=== PATIENT | female | born 1945 | race Caucasian/White ===

== ENCOUNTER 2016-12-28 16:34 | Emergency (ER) | payer MEDICARE ==
--- NOTE | 2016-12-28 18:32 | DIAGNOSTIC IMAGING REPORT ---
PROCEDURE: XR FOREARM - RIGHT INDICATION: TRAUMA/INJURY TECHNIQUE: AP and lateral views. COMPARISON: None. FINDINGS: Marked soft tissue swelling of the right forearm. Osseous structures are normal. No evidence of fracture. There are moderate arthritic changes of the right first metacarpal/greater multangular and the scaphoid/multangular joint. IMPRESSION: 1. Marked soft tissue swelling of the right forearm. 2. No evidence of fracture. 3. Moderate arthritic changes of the right base of thumb and radial wrist. 4. Findings discussed with JANNA Crooks
--- NOTE | 2016-12-30 02:27 | ED ORDER SUMMARY ---
..... Patient: SIMIN PRAJAPATI OrderSheet [facility] VisitID: [id number] [address] [place] [address] 71y, F Registration Date/Time: 12/28/2016 ORDER SHEET Weight: 72.5 kg (stated) Allergies: Codeine, Oxycodone HCl, Sudafed PE GENERAL ORDERS: Forearm Right Urgent (16:51 12/28/2016 Faith Thao per protocol) (Ack 16:53 LNations ER Tech1) (18:35 [facility]) MEDICATION ORDERS: IV FLUIDS: ORDER SHEET NOTES: [Electronically signed by Maya Khan R.N. (00:18 12/29/2016)] [Electronically locked/signed by Maya Khan R.N. (00:18 12/29/2016)]
--- NOTE | 2016-12-30 02:27 | ED CLINICAL REPORT ---
Clinical Report - Physicians/Mid Levels [facility] [address] [place] [address] 12/28/2016 16:34 Patient: SIMIN PRAJAPATI Time Seen: 1700; upon arrival, initial patient contact, initial documentation, patient care assumed. Arrived- By private vehicle. Historian- patient. HISTORY OF PRESENT ILLNESS Chief Complaint: Injury to right forearm. The injury happened today. Fell while walking and landed on the ground; slipped (slipped on wet snowy/icy ground). Occurred at home. Patient is experiencing severe pain. Patient denies injury to the head or neck. No other injury. ( went to clinic block captain, splint applied and sent pt here for further eval). REVIEW OF SYSTEMS The patient has had swelling. No skin laceration. All systems otherwise negative, except as recorded above. PAST HISTORY See nurses notes. PROBLEMS: Spinal Fracture. Fall. Degenerative disc disease. Heart Disease. Dizziness. Anxiety Reaction. Hypertension. Anxiety disorder. Arrhythmia. Myocardial Infarction. Immunizations. OR. Vertigo. --16:45 Tiff Sommers R.N. ADDITIONAL SURGERIES: Breast Augmentation. Cholecystectomy. Colonoscopy. Dental Surgery. Tubal Ligation. --16:45 Tiff Sommers R.N. SOCIAL HISTORY Never smoker. Occasional alcohol use. History of heavy drug use: marijuana. No recent travel. Is a local resident. FAMILY HISTORY No significant family medical history. ADDITIONAL NOTES The nursing notes have been reviewed with agreement regarding the chief complaint, HPI, ROS, PMH and patient medications and allergies. PHYSICAL EXAM Vital Signs: 12/28/2016 16:42 BP: 193/75. HR: 77. RR: 18. O2 saturation: 99%. Temp: 97.9 F. Pain level now: 7/10. Have been reviewed as abnormal and appear to be correct. Hypertensive. Heart rate normal. Respiratory rate normal. Temperature normal. Oxygen saturation normal. Appearance: Alert. Oriented X3. No acute distress. Head: Head atraumatic. Eyes: Pupils equal, round and reactive to light. Eyes normal inspection. Neck: Normal inspection. Neck supple. C-spine non-tender. CVS: Normal heart rate and rhythm. Heart sounds normal. Pulses normal. Respiratory: No respiratory distress. Breath sounds normal. Chest nontender. Abdomen: No visible injury. Soft and nontender. Back: Normal inspection. No tenderness. ROM normal. Skin: Skin intact. Skin warm and dry. Normal skin color. Normal skin turgor. Extremities: Right forearm: deformity consistent with a forearm fracture, severe tenderness, moderate swelling and medium sized ecchymosis located in the mid dorsal, volar, radial and ulnar aspect of forearm. Neurovascular intact distally. No erythema, laceration, abrasion, puncture wound or foreign body. Upper extremity otherwise negative. Extremities otherwise negative. Neuro, Vascular and Tendons: Vascular status intact. Sensation intact. Motor intact. Tendon function intact. Neuro: Oriented X 3. No motor deficit. No sensory deficit. LABS, X-RAYS, AND EKG X-Rays: Right forearm negative. Rt Forearm X-ray: (IMPRESSION: 1. Marked soft tissue swelling of the right forearm. 2. No evidence of fracture. 3. Moderate arthritic changes of the right base of thumb and radial wrist. 4. Findings discussed with JANNA Crooks Electronically Final signed by:Blade Navarro MD 12/28/2016 6:28:17 PM). The X-rays were interpreted by the radiologist and contemporaneously by me and discussed with the radiologist. PROGRESS AND PROCEDURES Course of Care: pt has brief yannick, nothing alarming, see report for full details. Patient and family counseled in person regarding the patient's stable condition, test results and diagnosis. Differential Diagnosis: Other possible considerations: fall, internal injury, fx, sprains, contusions, lacs, abrasions head injury. Above considerations are based on history, physical exam and X-Ray data. Differential diagnosis was discussed with patient. Disposition: Discharged home in good and improved condition. Condition: good and stable. CLINICAL IMPRESSION Single contusion with soft tissue hematoma to the right forearm. Fall on same level by slipping. INSTRUCTIONS Apply ice for 20 minutes four times a day for two days until better. Don't apply ice directly to skin. Elevate affected areas above chest level for two days until better. Warnings: GENERAL WARNINGS: Return or contact your physician immediately if your condition worsens or changes unexpectedly, if not improving as expected, or if other problems arise. Specifically return if problem worsens. Prescription Medications: Ultram 50 mg tablets: take 1-2 orally every 6 hours as needed for pain. Dispense twenty (20). No refills. Substitution is permissible. Follow-up: Follow up with your doctor in about three days even if well. Call for an appointment. Summary of care provided to patient. Understanding of the discharge instructions verbalized by patient. (Electronically signed by Maryann Ayala A.R.N.P. 12/29/2016 13:04)
--- NOTE | 2016-12-30 02:27 | ED NURSING NOTES ---
Clinical Report - Nurses [facility] [place] [address] [place] [address] 12/28/2016 16:34 Patient: SIMIN PRAJAPATI TRIAGE Acuity: LEVEL 3. Chief Complaint: INJURY TO RIGHT WRIST. Alert. No acute distress. CHRISTIN COMA SCORE: Christin Coma Scale: 15- eyes open spontaneously (4); best verbal response- oriented x 4 (5); best motor response- obeys commands (6). --16:49 Tiff Sommers R.N. 16:42 12/28/16. BP: 193/75. HR: 77. RR: 18. O2 saturation: 99% on room air. Temp: 97.9 F (oral). Pain level now: 05/02. --16:49 Tiff Sommers R.N. Weight: 72.5 kg stated. Height/Length: 68 inches Per Patient. BMI: 24.3. --16:45 Tiff Sommers R.N. Medications Allergy & Sinus Intense St Oral. Alprazolam 0.25 mg, as needed. Marijuana pill QID. --16:44 Tiff Sommers R.N. Medication/allergy information source: the patient. --16:49 Tiff Sommers R.N. Allergies Codeine. Oxycodone HCl. Sudafed PE. --16:44 Tiff Sommers R.N. History Arrived by private vehicle. Historian: patient. Accompanied by daughter. Primary physician (Tommy). This occurred today. Mechanism of injury: fell while walking and landed on the ground; slipped. 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 SOCIAL HX: Never smoker. Occasional alcohol use. History of heavy drug use: marijuana. NUTRITIONAL RISK ASSESSMENT: The nutritional risk assessment revealed no deficiencies. FUNCTIONAL ASSESSMENT: Functional assessment: no impairments noted. LEARNING NEEDS ASSESSMENT: The learning needs assessment revealed no barriers. FALL RISK ASSESSMENT: Fall risk assessment completed. Risk factors identified include patient age greater than 65 years and history of fall. Fall interventions initiated. Patient placed on stretcher. Brakes on Bed in low position. Call light in reach of patient. SKIN INTEGRITY ASSESSMENT: Skin integrity risk assessment completed. No skin integrity risk identified. --16:49 Tiff Sommers R.N. PROBLEMS: Spinal Fracture. Fall. Degenerative disc disease. Heart Disease. Dizziness. Anxiety Reaction. Hypertension. Anxiety disorder. Arrhythmia. Myocardial Infarction. Immunizations. OR. Vertigo. --16:45 Tiff Sommers R.N. ADDITIONAL SURGERIES: Breast Augmentation. Cholecystectomy. Colonoscopy. Dental Surgery. Tubal Ligation. --16:45 Tiff Sommers R.N. Assessment GENERAL / NEURO / PSYCH: Alert. Oriented X 4. Appears in no acute distress. Patient appears calm and cooperative. RESPIRATORY: Respirations not labored. CVS: Capillary refill less than 2 seconds. GI / : Abdomen soft and nontender. SKIN: Mucous membranes are pink. Skin is warm and dry. --16:49 Tiff Sommers R.N. Interventions ID band on patient. To treatment room. --16:49 Tiff Sommers R.N. PHYSICAL ASSESSMENT To room via wheelchair. GENERAL / NEURO / PSYCH: Oriented X 4. Alert. Appears in no acute distress. Appears in pain. EXTREMITIES: Capillary refill is less than 2 seconds in the extremities. Neuro-vascular status intact to the extremity. Right forearm. SKIN: Skin intact. Skin is warm and dry. --16:51 Tiff Sommers R.N. NURSING PROGRESS NOTES 16:51 12/28/16. Two patient identifiers checked. Call light placed in reach. Side rails up x 1. Bed placed in lowest position. Brakes of bed on. Patient ready for evaluation- chart flagged. --16:51 Tiff Sommers R.N. 17:07 12/28/2016 Site #1 started via IV in the left forearm with an 20g angiocath, with aseptic technique and good blood return; one attempt. Blood drawn: rainbow set. Labeled in the presence of the patient and sent to the lab. Saline lock flushed with 10 mL saline. --17:07 Kanwal Salas R.N. DISPOSITION / DISCHARGE Departure time: 1820. ( see paper chart for further documentation.). --00:17 Maya Khan R.N. Locked/Released at 12/29/2016 0:18 by Maya Khan R.N.
--- NOTE | 2016-12-30 02:27 | ED CLINICAL REPORT ---
Clinical Report - Physicians/Mid Levels [facility] [address] [place] [address] 12/28/2016 16:34 Patient: SIMIN PRAJAPATI Time Seen: 1700; upon arrival, initial patient contact, initial documentation, patient care assumed. Arrived- By private vehicle. Historian- patient. HISTORY OF PRESENT ILLNESS Chief Complaint: Injury to right forearm. The injury happened today. Fell while walking and landed on the ground; slipped (slipped on wet snowy/icy ground). Occurred at home. Patient is experiencing severe pain. Patient denies injury to the head or neck. No other injury. ( went to clinic sea captain, splint applied and sent pt here for further eval). REVIEW OF SYSTEMS The patient has had swelling. No skin laceration. All systems otherwise negative, except as recorded above. PAST HISTORY See nurses notes. PROBLEMS: Spinal Fracture. Fall. Degenerative disc disease. Heart Disease. Dizziness. Anxiety Reaction. Hypertension. Anxiety disorder. Arrhythmia. Myocardial Infarction. Immunizations. NC. Vertigo. --16:45 Tiff Sommers R.N. ADDITIONAL SURGERIES: Breast Augmentation. Cholecystectomy. Colonoscopy. Dental Surgery. Tubal Ligation. --16:45 Tiff Sommers R.N. SOCIAL HISTORY Never smoker. Occasional alcohol use. History of heavy drug use: marijuana. No recent travel. Is a local resident. FAMILY HISTORY No significant family medical history. ADDITIONAL NOTES The nursing notes have been reviewed with agreement regarding the chief complaint, HPI, ROS, PMH and patient medications and allergies. PHYSICAL EXAM Vital Signs: 12/28/2016 16:42 BP: 193/75. HR: 77. RR: 18. O2 saturation: 99%. Temp: 97.9 F. Pain level now: 7/10. Have been reviewed as abnormal and appear to be correct. Hypertensive. Heart rate normal. Respiratory rate normal. Temperature normal. Oxygen saturation normal. Appearance: Alert. Oriented X3. No acute distress. Head: Head atraumatic. Eyes: Pupils equal, round and reactive to light. Eyes normal inspection. Neck: Normal inspection. Neck supple. C-spine non-tender. CVS: Normal heart rate and rhythm. Heart sounds normal. Pulses normal. Respiratory: No respiratory distress. Breath sounds normal. Chest nontender. Abdomen: No visible injury. Soft and nontender. Back: Normal inspection. No tenderness. ROM normal. Skin: Skin intact. Skin warm and dry. Normal skin color. Normal skin turgor. Extremities: Right forearm: deformity consistent with a forearm fracture, severe tenderness, moderate swelling and medium sized ecchymosis located in the mid dorsal, volar, radial and ulnar aspect of forearm. Neurovascular intact distally. No erythema, laceration, abrasion, puncture wound or foreign body. Upper extremity otherwise negative. Extremities otherwise negative. Neuro, Vascular and Tendons: Vascular status intact. Sensation intact. Motor intact. Tendon function intact. Neuro: Oriented X 3. No motor deficit. No sensory deficit. LABS, X-RAYS, AND EKG X-Rays: Right forearm negative. Rt Forearm X-ray: (IMPRESSION: 1. Marked soft tissue swelling of the right forearm. 2. No evidence of fracture. 3. Moderate arthritic changes of the right base of thumb and radial wrist. 4. Findings discussed with JANNA Crooks Electronically Final signed by:Blade Navarro MD 12/28/2016 6:28:17 PM). The X-rays were interpreted by the radiologist and contemporaneously by me and discussed with the radiologist. PROGRESS AND PROCEDURES Course of Care: pt has brief yannick, nothing alarming, see report for full details. Patient and family counseled in person regarding the patient's stable condition, test results and diagnosis. Differential Diagnosis: Other possible considerations: fall, internal injury, fx, sprains, contusions, lacs, abrasions head injury. Above considerations are based on history, physical exam and X-Ray data. Differential diagnosis was discussed with patient. Disposition: Discharged home in good and improved condition. Condition: good and stable. CLINICAL IMPRESSION Single contusion with soft tissue hematoma to the right forearm. Fall on same level by slipping. INSTRUCTIONS Apply ice for 20 minutes four times a day for two days until better. Don't apply ice directly to skin. Elevate affected areas above chest level for two days until better. Warnings: GENERAL WARNINGS: Return or contact your physician immediately if your condition worsens or changes unexpectedly, if not improving as expected, or if other problems arise. Specifically return if problem worsens. Prescription Medications: Ultram 50 mg tablets: take 1-2 orally every 6 hours as needed for pain. Dispense twenty (20). No refills. Substitution is permissible. Follow-up: Follow up with your doctor in about three days even if well. Call for an appointment. Summary of care provided to patient. Understanding of the discharge instructions verbalized by patient. (Electronically signed by Maryann Ayala A.R.N.P. 12/29/2016 13:04)
--- NOTE | 2016-12-30 02:27 | ED ORDER SUMMARY ---
..... Patient: SIMIN PRAJAPATI OrderSheet [facility] VisitID: [id number] [address] [place] [address] 71y, F Registration Date/Time: 12/28/2016 ORDER SHEET Weight: 72.5 kg (stated) Allergies: Codeine, Oxycodone HCl, Sudafed PE GENERAL ORDERS: Forearm Right Urgent (16:51 12/28/2016 Faith Thao per protocol) (Ack 16:53 LNations ER Tech1) (18:35 [facility]) MEDICATION ORDERS: IV FLUIDS: ORDER SHEET NOTES: [Electronically signed by Maya Khan R.N. (00:18 12/29/2016)] [Electronically locked/signed by Maya Khan R.N. (00:18 12/29/2016)]
--- NOTE | 2016-12-30 02:27 | ED NURSING NOTES ---
Clinical Report - Nurses [facility] [place] [address] [place] [address] 12/28/2016 16:34 Patient: SIMIN PRAJAPATI TRIAGE Acuity: LEVEL 3. Chief Complaint: INJURY TO RIGHT WRIST. Alert. No acute distress. CHRISTIN COMA SCORE: Christin Coma Scale: 15- eyes open spontaneously (4); best verbal response- oriented x 4 (5); best motor response- obeys commands (6). --16:49 Tiff Sommers R.N. 16:42 12/28/16. BP: 193/75. HR: 77. RR: 18. O2 saturation: 99% on room air. Temp: 97.9 F (oral). Pain level now: 05/02. --16:49 Tiff Sommers R.N. Weight: 72.5 kg stated. Height/Length: 68 inches Per Patient. BMI: 24.3. --16:45 Tiff Sommers R.N. Medications Allergy & Sinus Intense St Oral. Alprazolam 0.25 mg, as needed. Marijuana pill QID. --16:44 Tiff Sommers R.N. Medication/allergy information source: the patient. --16:49 Tiff Sommers R.N. Allergies Codeine. Oxycodone HCl. Sudafed PE. --16:44 Tiff Sommers R.N. History Arrived by private vehicle. Historian: patient. Accompanied by daughter. Primary physician (Tommy). This occurred today. Mechanism of injury: fell while walking and landed on the ground; slipped. 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 SOCIAL HX: Never smoker. Occasional alcohol use. History of heavy drug use: marijuana. NUTRITIONAL RISK ASSESSMENT: The nutritional risk assessment revealed no deficiencies. FUNCTIONAL ASSESSMENT: Functional assessment: no impairments noted. LEARNING NEEDS ASSESSMENT: The learning needs assessment revealed no barriers. FALL RISK ASSESSMENT: Fall risk assessment completed. Risk factors identified include patient age greater than 65 years and history of fall. Fall interventions initiated. Patient placed on stretcher. Brakes on Bed in low position. Call light in reach of patient. SKIN INTEGRITY ASSESSMENT: Skin integrity risk assessment completed. No skin integrity risk identified. --16:49 Tiff Sommers R.N. PROBLEMS: Spinal Fracture. Fall. Degenerative disc disease. Heart Disease. Dizziness. Anxiety Reaction. Hypertension. Anxiety disorder. Arrhythmia. Myocardial Infarction. Immunizations. [place]. Vertigo. --16:45 Tiff Sommers R.N. ADDITIONAL SURGERIES: Breast Augmentation. Cholecystectomy. Colonoscopy. Dental Surgery. Tubal Ligation. --16:45 Tiff Sommers R.N. Assessment GENERAL / NEURO / PSYCH: Alert. Oriented X 4. Appears in no acute distress. Patient appears calm and cooperative. RESPIRATORY: Respirations not labored. CVS: Capillary refill less than 2 seconds. GI / : Abdomen soft and nontender. SKIN: Mucous membranes are pink. Skin is warm and dry. --16:49 Tiff Sommers R.N. Interventions ID band on patient. To treatment room. --16:49 Tiff Sommers R.N. PHYSICAL ASSESSMENT To room via wheelchair. GENERAL / NEURO / PSYCH: Oriented X 4. Alert. Appears in no acute distress. Appears in pain. EXTREMITIES: Capillary refill is less than 2 seconds in the extremities. Neuro-vascular status intact to the extremity. Right forearm. SKIN: Skin intact. Skin is warm and dry. --16:51 Tiff Sommers R.N. NURSING PROGRESS NOTES 16:51 12/28/16. Two patient identifiers checked. Call light placed in reach. Side rails up x 1. Bed placed in lowest position. Brakes of bed on. Patient ready for evaluation- chart flagged. --16:51 Tiff Sommers R.N. 17:07 12/28/2016 Site #1 started via IV in the left forearm with an 20g angiocath, with aseptic technique and good blood return; one attempt. Blood drawn: rainbow set. Labeled in the presence of the patient and sent to the lab. Saline lock flushed with 10 mL saline. --17:07 Kanwal Salas R.N. DISPOSITION / DISCHARGE Departure time: 1820. ( see paper chart for further documentation.). --00:17 Maya Khan R.N. Locked/Released at 12/29/2016 0:18 by Maya Khan R.N.
--- NOTE | 2016-12-30 02:32 | ED MED RECONCILIATION SUMMARY ---
Patient: SIMIN PRAJAPATI Medication Reconciliation Report [facility] VisitID: [id number] [address] [place] [address] 71y, F Registration Date/Time: 12/28/2016 Weight: 72.5 kg Height/Length: 68 in. BMI: 24.3 ALLERGIES: Codeine, Oxycodone HCl, Sudafed PE The patient's Home Medications are listed below: THE FOLLOWING MEDICATIONS NEED TO BE RECONCILED: Allergy & Sinus Intense St Oral Alprazolam 0.25 mg Marijuana pill QID The source(s) of the original Home Medication information: patient The following Medications were given to the patient in the Emergency Department: None. The following Medications were prescribed to the patient: Ultram 50 mg tablets: take 1-2 orally every 6 hours as needed for pain. Dispense twenty (20). No refills. Substitution is permissible. -- Maryann Ayala A.R.N.P.
--- NOTE | 2016-12-30 02:32 | ED MAR SUMMARY ---
..... Medication Administration Record [facility] [address] [place] [id number] Patient: SIMIN PRAJAPATI Visit ID: [id number] 71y, F Weight: 72.5 kg Height/Length: 68 in BMI: 24.3 ALLERGIES: Codeine, Oxycodone HCl, Sudafed PE
--- NOTE | 2016-12-30 02:32 | ED MAR SUMMARY ---
..... Medication Administration Record [facility] [address] [place], [place] [id number] Patient: SIMIN PRAJAPATI Visit ID: [id number] 71y, F Weight: 72.5 kg Height/Length: 68 in BMI: 24.3 ALLERGIES: Codeine, Oxycodone HCl, Sudafed PE
--- NOTE | 2016-12-30 02:32 | ED DISCHARGE INSTRUCTIONS ---
Patient: SIMIN PRAJAPATI General Instructions Located Within [facility] VisitID: [id number] [place] [address] 71y, F Registration Date/Time: 12/28/2016 Single contusion with soft tissue hematoma to the right forearm. Fall on same level by slipping. INSTRUCTIONS Apply ice for 20 minutes four times a day for two days until better. Don't apply ice directly to skin. Elevate affected areas above chest level for two days until better. Warnings: GENERAL WARNINGS: Return or contact your physician immediately if your condition worsens or changes unexpectedly, if not improving as expected, or if other problems arise. Specifically return if problem worsens. Prescription Medications: Ultram 50 mg tablets: take 1-2 orally every 6 hours as needed for pain. Dispense twenty (20). No refills. Substitution is permissible. Follow-up: Follow up with your doctor in about three days even if well. Call for an appointment. Summary of care provided to patient. Understanding of the discharge instructions verbalized by patient. ADDITIONAL INFORMATION Mechanical Fall You have had a fall today. It appears that the cause is mechanical. That means that you slipped, tripped or lost your balance. If your fall had been due to fainting or a seizure, further tests would be required. Home Care: Rest today and resume your normal activities when you are feeling back to normal. If you were injured during the fall, follow the advice from your doctor regarding care of your injury. You may use acetaminophen (Tylenol) or ibuprofen (Motrin, Advil) to control pain, unless another pain medicine was prescribed. [NOTE: If you have chronic liver or kidney disease or ever had a stomach ulcer or GI bleeding, talk with your doctor before using these medicines.] Fall Prevention: Was there anything that caused your fall that can be fixed, removed, or replaced? Make your home safe by keeping walkways clear of objects you may trip over. Use non-slip pads under rugs. Do not walk in poorly lit areas. Do not stand on chairs or wobbly ladders. Use caution when reaching overhead or looking upward. This position can cause a loss of balance. Be sure your shoes fit properly, have non-slip bottoms and are in good condition. Be cautious when going up and down curbs, and walking on uneven sidewalks. If your balance is poor, consider using a cane or walker. Stay as active as you can. Balance, flexibility, strength, and endurance all come from exercise. They all play a role in preventing falls. Follow Up with your doctor or as advised by our staff. Get Prompt Medical Attention if any of the following occur: Repeated mechanical falls, or unexplained falls Dizziness, fainting or seizure Severe headache Chest pain or shortness of breath Palpitations (very rapid or very slow or irregular heartbeat) Blood in vomit, stools (black or red color) Weakness of an arm or leg or one side of the face Difficulty with speech or vision Contusion:Upper Extremity You have a contusion of your upper extremity (arm, wrist, hand or fingers). This causes local pain, swelling and sometimes bruising. There are no broken bones. This injury takes a few days to a few weeks to heal. A sling may be provided for comfort and arm support. Home Care: 1) Keep your arm elevated to reduce pain and swelling. This is very important during the first 48 hours. 2) Apply an ice pack (ice cubes in a plastic bag, wrapped in a towel) over the injured area for 20 minutes every 1-2 hours the first day for pain relief. Continue this 3-4 times a day until the pain and swelling goes away. 3) You may use acetaminophen (Tylenol) or ibuprofen (Motrin, Advil) to control pain, unless another pain medicine was prescribed. [ NOTE : If you have chronic liver or kidney disease or ever had a stomach ulcer or GI bleeding, talk with your doctor before using these medicines.] 4) If a sling was provided, you may remove it to shower or bathe. Do not wear it for more than one week or it may cause joint stiffness. Follow Up with your doctor or this facility if you are not starting to improve within the next THREE days. [NOTE: If X-rays were taken, they will be reviewed by a radiologist. You will be notified of any new findings that may affect your care.] Get Prompt Medical Attention if any of the following occur: -- Pain or swelling increases -- Redness, warmth or drainage -- Hand or fingers becomes cold, blue, numb or tingly Tramadol Hydrochloride Oral tablet What is this medicine? TRAMADOL (TRA ma dole) is a pain reliever. It is used to treat moderate to severe pain in adults. How should I use this medicine? Take this medicine by mouth with a full glass of water. Follow the directions on the prescription label. If the medicine upsets your stomach, take it with food or milk. Do not take more medicine than you are told to take. Talk to your mud mill tender regarding the use of this medicine in children. Special care may be needed. What side effects may I notice from receiving this medicine? Side effects that you should report to your doctor or health dialysis patient care technician as soon as possible: allergic reactions like skin rash, itching or hives, swelling of the face, lips, or tongue breathing difficulties, wheezing confusion itching light headedness or fainting spells redness, blistering, peeling or loosening of the skin, including inside the mouth seizures Side effects that usually do not require medical attention (report to your doctor or health dialysis patient care technician if they continue or are bothersome): constipation dizziness drowsiness headache nausea, vomiting What may interact with this medicine? Do not take this medicine with any of the following medications: MAOIs like Carbex, Eldepryl, Marplan, Nardil, and Parnate This medicine may also interact with the following medications: alcohol or medicines that contain alcohol antihistamines benzodiazepines bupropion carbamazepine or oxcarbazepine clozapine cyclobenzaprine digoxin furazolidone linezolid medicines for depression, anxiety, or psychotic disturbances medicines for migraine headache like almotriptan, eletriptan, frovatriptan, naratriptan, rizatriptan, sumatriptan, zolmitriptan medicines for pain like pentazocine, buprenorphine, butorphanol, meperidine, nalbuphine, and propoxyphene medicines for sleep muscle relaxants naltrexone phenobarbital phenothiazines like perphenazine, thioridazine, chlorpromazine, mesoridazine, fluphenazine, prochlorperazine, promazine, and trifluoperazine procarbazine warfarin What if I miss a dose? If you miss a dose, take it as soon as you can. If it is almost time for your next dose, take only that dose. Do not take double or extra doses. Where should I keep my medicine? Keep out of the reach of children. Store at room temperature between 15 and 30 degrees C (59 and 86 degrees F). Keep container tightly closed. Throw away any unused medicine after the expiration date. What should I tell my health care provider before I take this medicine? They need to know if you have any of these conditions: brain tumor depression drug abuse or addiction head injury if you frequently drink alcohol containing drinks kidney disease or trouble passing urine liver disease lung disease, asthma, or breathing problems seizures or epilepsy suicidal thoughts, plans, or attempt; a previous suicide attempt by you or a family member an unusual or allergic reaction to tramadol, codeine, other medicines, foods, dyes, or preservatives or trying to get breast-feeding What should I watch for while using this medicine? Tell your doctor or health dialysis patient care technician if your pain does not go away, if it gets worse, or if you have new or a different type of pain. You may develop tolerance to the medicine. Tolerance means that you will need a higher dose of the medicine for pain relief. Tolerance is normal and is expected if you take this medicine for a long time. Do not suddenly stop taking your medicine because you may develop a severe reaction. Your body becomes used to the medicine. This does NOT mean you are addicted. Addiction is a behavior related to getting and using a drug for a non-medical reason. If you have pain, you have a medical reason to take pain medicine. Your doctor will tell you how much medicine to take. If your doctor wants you to stop the medicine, the dose will be slowly lowered over time to avoid any side effects. You may get drowsy or dizzy. Do not drive, use machinery, or do anything that needs mental alertness until you know how this medicine affects you. Do not stand or sit up quickly, especially if you are an older patient. This reduces the risk of dizzy or fainting spells. Alcohol can increase or decrease the effects of this medicine. Avoid alcoholic drinks. You may have constipation. Try to have a bowel movement at least every 2 to 3 days. If you do not have a bowel movement for 3 days, call your doctor or health dialysis patient care technician. Your mouth may get dry. Chewing sugarless gum or sucking hard candy, and drinking plenty of water may help. Contact your doctor if the problem does not go away or is severe. You have been given the following additional information: Fall, Mechanical Contusion, Upper Extremity Tramadol Hydrochloride Oral tablet (Electronically signed by Maryann Ayala A.R.N.P. 12/29/2016 13:04)
--- NOTE | 2016-12-30 02:32 | ED MED RECONCILIATION SUMMARY ---
Patient: SIMIN PRAJAPATI Medication Reconciliation Report [facility] VisitID: [id number] [address] [place] [address] 71y, F Registration Date/Time: 12/28/2016 Weight: 72.5 kg Height/Length: 68 in. BMI: 24.3 ALLERGIES: Codeine, Oxycodone HCl, Sudafed PE The patient's Home Medications are listed below: THE FOLLOWING MEDICATIONS NEED TO BE RECONCILED: Allergy & Sinus Intense St Oral Alprazolam 0.25 mg Marijuana pill QID The source(s) of the original Home Medication information: patient The following Medications were given to the patient in the Emergency Department: None. The following Medications were prescribed to the patient: Ultram 50 mg tablets: take 1-2 orally every 6 hours as needed for pain. Dispense twenty (20). No refills. Substitution is permissible. -- Maryann Ayala A.R.N.P.
== END 2016-12-28 18:20 | disposition home or self-care (01) ==
LOC: ED SRH 16:34
DX: S50.11XA Contusion of right forearm, initial encounter (principal); W00.0XXA Fall on same level due to ice and snow, initial encounter; Y93.9 Activity, unspecified; Y92.009 Unspecified place in unspecified non-institutional (private) residence as the place of occurrence of the external cause; Y99.9 Unspecified external cause status; I10 Essential (primary) hypertension; Z88.5 Allergy status to narcotic agent; Z88.8 Allergy status to other drugs, medicaments and biological substances